=== PATIENT | female | born 1990 | race Caucasian/White ===

== ENCOUNTER 2017-01-04 20:50 | Emergency (ER) | payer BC ==
[2017-01-04 21:19] VITALS: O2SAT 95
--- NOTE | 2017-01-04 21:22 | ED.PDOC ---
History of Present Illness - General Chief Complaint: Headache Stated Complaint: headache with dizziness and confusion Time Seen by Provider: 01/04/17 21:09 Source: patient, RN notes reviewed, Vital Signs reviewed Exam Limitations: no limitations - History of Present Illness Initial Comments: Patient here with c/o CABA with dizziness, confusion and disorientation. CABA started 4 days ago. Pain was back of neck and back of head. Initially was a searing pain but now is improved and just a dull ache. Still able to take her children to school and go about her normal daily activities. No blurry vision, no N/V. No balance/walking issues. She does report numbness of her whole R arm but this has been going on for 6 months. Timing/Duration: constant - 4 days, decreasing Quality: mild, achy, constant Head Injury Location: occipital Recent Head Trauma: no recent headache/trauma Improving Factors: nothing Worsening Factors: nothing Associated Symptoms: confusion, other - dizziness Allergies/Adverse Reactions: Allergies Hydrocodone [From Vicodin] Allergy (Intermediate, Verified 06/25/15 10:40) "I itch really bad" Acetaminophen [From Vicodin] Allergy (Verified 06/25/15 10:40) Codeine Allergy (Verified 10/18/15 10:30) Home Medications: Ambulatory Orders Estradiol 2 mg PO DAILY 06/25/15 Quetiapine Fumarate [Seroquel] 200 mg PO BEDTIME 06/25/15 Amoxicillin & Pot Clavulanate [Augmentin] 875 mg PO BID #20 tab 01/23/16 Fluconazole [Diflucan Tab] 150 mg PO ONCE #1 tab 01/23/16 Nitrofurantoin Monohydrate Mac [Macrobid] 100 mg PO BID #14 cap 02/23/16 Cyclobenzaprine HCl [Flexeril] 5 mg PO Q8HR PRN #15 tab 01/04/17 Review of Systems - Review of Systems Constitutional: States: no symptoms reported. Denies: chills, fever, malaise EENTM: States: no symptoms reported Respiratory: States: no symptoms reported Cardiology: States: no symptoms reported Gastrointestinal/Abdominal: States: no symptoms reported Musculoskeletal: States: no symptoms reported Skin: States: no symptoms reported Neurological: States: see HPI, headache, numbness, other - confusion, dizziness , disorientation All other Systems: No Change from Baseline Past Medical History (General) - Patient Medical History Hx Seizures: No Hx Stroke: No Hx Dementia: No Hx Asthma: No Hx of COPD: No Hx Cardiac Disorders: No Hx Congestive Heart Failure: No Hx Pacemaker: No Hx Hypertension: No Hx Thyroid Disease: No Hx Diabetes: No Hx Gastroesophageal Reflux: Yes Hx Renal Disease: No Hx Cancer: No Hx of HIV: No Hx Hepatitis C: No Hx MRSA: No Surgical History: tonsillectomy, Hysterectomy, other - Vaccination History Hx Tetanus, Diphtheria Vaccination: No Hx Influenza Vaccination: No Hx Pneumococcal Vaccination: No - Social History Hx Tobacco Use: Yes Hx Chewing Tobacco Use: No Hx Alcohol Use: No Hx Substance Use: No Hx Substance Use Treatment: No Hx Depression: Yes - Bi-polar Hx Physical Abuse: No Hx Emotional Abuse: No Hx Suspected Abuse: No - Female History Patient : No - Pt had hysterectomy Family Medical History - Family History Maternal Living Status: Still Living Hx Family Asthma: Yes Hx Family Hypertension: Yes Hx Cardiac Disease: Yes - high cholesterol Hx Family Cancer: Yes Hx Family;Other: DVT per report Physical Exam - Physical Exam General Appearance: Alert, Anxious, Comfortable, No apparent distress, Well Developed, Well Groomed, Well Hydrated, Well Nourished Eyes, Ears, Nose, Throat Exam: PERRL/EOMI, normal ENT inspection, pharynx normal Neck: full range of motion, supple, normal inspection, tender lateral - L lateral paraspinous muscle tenderness Cardiovascular/Chest: regular rate, rhythm, no edema, no gallop, no murmur Respiratory: lungs clear, normal breath sounds, no respiratory distress, no accessory muscle use Extremity: normal range of motion, non-tender, normal inspection Mental Status: alert, oriented x 3, other - Can't do serial 7's w/o a calculator , Got day and year correct but thought the month was January. Remembered 3 items immediately and later during exam. machinist 2nd shift Exam: normal hearing, normal speech, PERRL Coordination/Gait: normal gait Motor/Sensory: no motor deficit, no sensory deficit, no pronator drift Skin Exam: warm/dry, normal color Progress - Progress Progress: 01/04/17 22:22 Discussed normal results with patient and . Most likely is either a slowly resolving Migraine or tension CABA. Given her CABA symptoms and her RUE symptoms recommended follow up with PCP for possible MRI of neck. - Results/Orders Results/Orders: Laboratory Tests 01/04/17 01/04/17 21:30 21:30 WBC 9.6 RBC 4.44 Hgb 13.7 Hct 39.4 MCV 88.7 MCH 30.9 MCHC 34.8 RDW 12.4 Plt Count 190 MPV 8.8 Absolute Neuts (auto) 5.20 Absolute Lymphs (auto) 3.40 Absolute Monos (auto) 0.60 Absolute Eos (auto) 0.20 Absolute Basos (auto) 0.10 Neutrophils % 54.4 Lymphocytes % 35.9 Monocytes % 6.5 Eosinophils % 2.5 Basophils % 0.7 Sodium 139 Potassium 3.9 Chloride 107 Carbon Dioxide 26 Anion Gap 9.9 L BUN 10 Creatinine 0.70 BUN/Creatinine Ratio 14.3 Random Glucose 97 Serum Osmolality 276.5 Calcium 9.4 Total Bilirubin 0.3 AST 16 ALT 12 Alkaline Phosphatase 68 Serum Total Protein 6.6 Albumin 3.7 Globulin 2.9 Albumin/Globulin Ratio 1.3 - EKG/XRAY/CT CT Ordered: Yes CT Interpretation Call Back: No - Head: no acute intracranial abnormality Departure - Departure Clinical Impression: Tension type headache Qualifiers: Headache chronicity pattern: acute headache Intractability: not intractable Qualified Code(s): G44.209 - Tension-type headache, unspecified, not intractable Time of Disposition: 22:28 Disposition: Discharge to Home or Self Care Condition: Good Departure Forms: ED Discharge - Pt. Copy, Patient Portal Self Enrollment Instructions: Tension Headache Diet: resume usual diet Activity: increase activity as tolerated Referrals: Bandar Araujo MD [Primary Care Provider] - 1-2 Weeks Prescriptions: Cyclobenzaprine HCl [Flexeril] 5 mg PO Q8HR PRN #15 tab PRN Reason: Headache/Migraine Pain Home Medications: Ambulatory Orders Estradiol 2 mg PO DAILY 06/25/15 Quetiapine Fumarate [Seroquel] 200 mg PO BEDTIME 06/25/15 Amoxicillin & Pot Clavulanate [Augmentin] 875 mg PO BID #20 tab 01/23/16 Fluconazole [Diflucan Tab] 150 mg PO ONCE #1 tab 01/23/16 Nitrofurantoin Monohydrate Mac [Macrobid] 100 mg PO BID #14 cap 02/23/16 Cyclobenzaprine HCl [Flexeril] 5 mg PO Q8HR PRN #15 tab 05/16/17
--- NOTE | 2017-01-04 21:52 | CT ---
PROCEDURE: Head CLINICAL HISTORY: 26 years Female CABA w/ dizziness COMPARISON: None. TECHNIQUE: Contiguous axial images obtained through the brain without IV contrast. This exam was performed according to our department optimization program which includes automated exposure control, adjustment of the mA and/or kv according to patient size and/or use of iterative reconstruction technique. FINDINGS: The ventricles and sulci appear unremarkable. No abnormal areas of decreased density are identified. No acute hemorrhage. No mass lesions. No fluid or significant mucosal thickening in the visualized paranasal sinuses. No depressed calvarial fractures. IMPRESSION: No acute intracranial abnormality is identified. If there is clinical concern for the possibility of acute ischemic change, MRI could be obtained to better evaluate. Electronically signed by: Bao Bruce MD 01/04/2017 9:52 PM CDT
[2017-01-04] MEDS ORDERED: CYCLOBENZAPRINE HCL 5 MG TAB PO ONE (22:10)
[2017-01-04 22:43] VITALS: BP 115/84; TEMP 97.9
== END 2017-01-04 22:40 | disposition home or self-care (01) ==
LOC: ER 20:50
DX: G44.209 Tension-type headache, unspecified, not intractable (principal); K21.9 Gastro-esophageal reflux disease without esophagitis; F31.9 Bipolar disorder, unspecified; Z79.899 Other long term (current) drug therapy; Z88.6 Allergy status to analgesic agent; Z87.891 Personal history of nicotine dependence

== ENCOUNTER 2017-01-31 18:03 | Emergency (ER) | payer BC ==
[2017-01-31 18:16] VITALS: BP 143/80; TEMP 98
[2017-01-31] MEDS ORDERED: AZITHROMYCIN 250 MG TAB PO ONE (18:16)
[2017-01-31] MEDS ORDERED: predniSONE 20 MG TAB PO ONE ×2 (18:16→18:21)
[2017-01-31 18:19] VITALS: O2SAT 98
--- NOTE | 2017-01-31 18:19 | ED.PDOC ---
History of Present Illness - General Chief Complaint: ENT Problem Stated Complaint: BILATERAL EAR PAIN X 3 WEEKS Time Seen by Provider: 01/31/17 18:15 Source: patient Exam Limitations: no limitations - History of Present Illness Initial Comments: The patient is a 26-year-old female presenting to the emergency room secondary to cough along with sinus pressure, ear pressure and headache for the last 3 weeks. No definite fevers. Mildly productive sputum. No syncope or near syncope. She does smoke. No chest pain. Timing/Duration: unsure Severity: moderate Improving Factors: nothing Worsening Factors: nothing Associated Symptoms: denies symptoms Allergies/Adverse Reactions: Allergies Hydrocodone [From Vicodin] Allergy (Intermediate, Verified 01/31/17 18:11) "I itch really bad" Codeine Allergy (Verified 01/31/17 18:11) Home Medications: Ambulatory Orders Amoxicillin & Pot Clavulanate [Augmentin Tab] 875 mg PO BID #20 tab 01/31/17 Quetiapine Fumarate [Seroquel] 200 mg PO BEDTIME 01/31/17 predniSONE [Prednisone] 20 mg PO DAILY #4 tab 01/31/17 Review of Systems - Review of Systems Constitutional: States: no symptoms reported EENTM: States: ear pain, nose congestion Respiratory: States: see HPI Cardiology: States: no symptoms reported Gastrointestinal/Abdominal: States: no symptoms reported Genitourinary: States: no symptoms reported Musculoskeletal: States: no symptoms reported Skin: States: no symptoms reported Neurological: States: headache Endocrine: States: no symptoms reported All other Systems: No Change from Baseline Past Medical History (General) - Patient Medical History Hx Seizures: No Hx Stroke: No Hx Dementia: No Hx Asthma: No Hx of COPD: No Hx Cardiac Disorders: No Hx Congestive Heart Failure: No Hx Pacemaker: No Hx Hypertension: No Hx Thyroid Disease: No Hx Diabetes: No Hx Gastroesophageal Reflux: Yes Hx Renal Disease: No Hx Cancer: No Hx of HIV: No Hx Hepatitis C: No Hx MRSA: No - Vaccination History Hx Tetanus, Diphtheria Vaccination: No Hx Influenza Vaccination: No Hx Pneumococcal Vaccination: No - Social History Hx Tobacco Use: Yes Hx Chewing Tobacco Use: No Hx Alcohol Use: No Hx Substance Use: No Hx Substance Use Treatment: No Hx Depression: Yes - Bi-polar Hx Physical Abuse: No Hx Emotional Abuse: No Hx Suspected Abuse: No - Female History Patient : No - Pt had hysterectomy Family Medical History - Family History Maternal Living Status: Still Living Hx Family Asthma: Yes Hx Family Hypertension: Yes Hx Cardiac Disease: Yes - high cholesterol Hx Family Cancer: Yes Hx Family;Other: DVT per report Physical Exam - Physical Exam General Appearance: Alert, Comfortable, No apparent distress Eye Exam: bilateral normal Ears, Nose, Throat: hearing grossly normal, normal pharynx, nasal congestion Neck: non-tender, full range of motion, supple Respiratory: chest non-tender, no respiratory distress, no accessory muscle use , other - right lower lobe rales and rhonchi Cardiovascular/Chest: normal peripheral pulses, regular rate, rhythm, no edema Peripheral Pulses: radial,right: 2+, radial,left: 2+, dorsalis pedis,right: 2+, dorsalis pedis,left: 2+ Gastrointestinal/Abdominal: non tender, soft Rectal Exam: deferred Back Exam: normal inspection Extremity: normal range of motion, non-tender, normal inspection, no pedal edema , normal capillary refill Neurologic: pediatric care coordinator II-XII nml as tested, alert, normal mood/affect, oriented x 3 Skin Exam: normal color Comments: Vital Signs - 24 hr 01/31/17 18:12 Temperature 98 F Pulse Rate [ 71 Left Apical] Respiratory 18 Rate Blood Pressure 143/80 [Left Arm] O2 Sat by Pulse 80 L Oximetry Progress - Progress Progress: 01/31/17 18:19 the patient is a 26-year-old presenting with sinusitis for Approximately 3 weeks with associated right lower lobe pneumonia. She is oxygenating well and not in any respiratory distress. she'll be placed on prednisone for 4 days and Augmentin for 10 days. ER warnings were given. She does need follow-up with her primary care doctor for reevaluation in one week. Departure - Departure Clinical Impression: Pneumonia Qualifiers: Pneumonia type: due to unspecified organism Laterality: right Lung location: lower lobe of lung Qualified Code(s): J18.9 - Pneumonia, unspecified organism Disposition: Discharge to Home or Self Care Condition: Fair Departure Forms: ED Discharge - Pt. Copy, Patient Portal Self Enrollment Instructions: DI for Pneumonia -- Adult Diet: regular diet Activity: increase activity as tolerated Referrals: Bandar Araujo MD [Primary Care Provider] - 1-2 Weeks Prescriptions: Amoxicillin & Pot Clavulanate [Augmentin Tab] 875 mg PO BID #20 tab predniSONE [Prednisone] 20 mg PO DAILY #4 tab Home Medications: Ambulatory Orders Amoxicillin & Pot Clavulanate [Augmentin Tab] 875 mg PO BID #20 tab 01/31/17 Quetiapine Fumarate [Seroquel] 200 mg PO BEDTIME 01/31/17 predniSONE [Prednisone] 20 mg PO DAILY #4 tab 01/31/17 Additional Instructions: the patient is a 26-year-old presenting with sinusitis for Approximately 3 weeks with associated right lower lobe pneumonia. She is oxygenating well and not in any respiratory distress. she'll be placed on prednisone for 4 days and Augmentin for 10 days. ER warnings were given. She does need follow-up with her primary care doctor for reevaluation in one week.
[2017-01-31] MEDS ORDERED: AMOXICILLIN & POT CLAVULANATE 875 MG TAB PO ONE (18:21)
[2017-01-31] MEDS ORDERED: IBUPROFEN 200 MG TAB PO ONE (18:30)
== END 2017-01-31 18:43 | disposition home or self-care (01) ==
LOC: ER 18:03
DX: J18.9 Pneumonia, unspecified organism (principal); K21.9 Gastro-esophageal reflux disease without esophagitis; F31.9 Bipolar disorder, unspecified; F17.200 Nicotine dependence, unspecified, uncomplicated; Z88.6 Allergy status to analgesic agent; Z79.899 Other long term (current) drug therapy
CPT/HCPCS: J7512; Q0144

== ENCOUNTER → 2017-10-05 | Outpatient (CLI) | payer BC, OTHER | LOC: YCFC.O 08:32 | DX: R53.81 Other malaise (principal) ==

== ENCOUNTER → 2019-04-05 | Outpatient (CLI) | payer OTHER | LOC: LAB.O 07:15 | PROVIDERS: ATTEND Family Medicine | DX: Z13.220 Encounter for screening for lipoid disorders (principal); R53.83 Other fatigue; R30.0 Dysuria ==

== ENCOUNTER 2019-04-06 23:24 | Emergency (ER) | payer OTHER ==
[2019-04-06] MEDS ORDERED: KETOROLAC TROMETHAMINE INJ 30 MG/ML VIAL IM ONE (23:41)
--- NOTE | 2019-04-06 23:47 | ED.PDOC ---
History of Present Illness - General Chief Complaint: Upper Extremity Injury Stated Complaint: 2 day history of pain and swelling to wrist Time Seen by Provider: 04/06/19 23:41 Source: patient Exam Limitations: no limitations - History of Present Illness Initial Comments: patient comes in today with a 2 day history of worsening swelling and pain to the right wrist. Patient denies any acute injury but she's had a fracture there and also a hairline fracture there several years ago. Patient states she's had no acute trauma, increased activity, or injury to the area. She has however had intermittent bouts of joint swelling in different parts of her body. Patient states this time it started 2 days ago and it feels like there is so much pressure in her wrist and skin tear her skin apart. Patient states she is not taking anything for the pain including no [id number] ibuprofen or Tylenol. Patient is concerned that this could be her heart as both her mother and gr andmother had congestive heart failure in their 30s and her mother in her 50s from coronary artery disease. Patient states the swelling has happened in her shoulders and arms and now her wrist and she routinely has pedal edema. She has not had any fever or chills and denies any chest pain or shortness of breath. Timing/Duration: getting worse Severity: moderate Improving Factors: nothing Worsening Factors: movement Associated Symptoms: denies symptoms Allergies/Adverse Reactions: Allergies Hydrocodone [From Vicodin] Allergy (Intermediate, Verified 01/31/17 18:11) "I itch really bad" Codeine Allergy (Verified 01/31/17 18:11) Home Medications: Ambulatory Orders Amoxicillin & Pot Clavulanate [Augmentin Tab] 875 mg PO BID #20 tab 01/31/17 Quetiapine Fumarate [Seroquel] 200 mg PO BEDTIME 01/31/17 predniSONE [Prednisone] 20 mg PO DAILY #4 tab 01/31/17 Review of Systems - Review of Systems Constitutional: States: no symptoms reported. Denies: chills, fever EENTM: States: no symptoms reported Respiratory: States: no symptoms reported. Denies: cough, short of breath Cardiology: States: no symptoms reported. Denies: chest pain, palpitations Gastrointestinal/Abdominal: States: no symptoms reported. Denies: abdominal pain, nausea, vomiting Genitourinary: States: no symptoms reported Musculoskeletal: States: see HPI Past Medical History (General) - Patient Medical History Hx Seizures: No Hx Stroke: No Hx Dementia: No Hx Asthma: No Hx of COPD: No Hx Cardiac Disorders: No Hx Congestive Heart Failure: No Hx Pacemaker: No Hx Hypertension: No Hx Thyroid Disease: No Hx Diabetes: No Hx Gastroesophageal Reflux: Yes Hx Renal Disease: No Hx Cancer: No Hx of HIV: No Hx Hepatitis C: No Hx MRSA: No - Vaccination History Hx Tetanus, Diphtheria Vaccination: No Hx Influenza Vaccination: No Hx Pneumococcal Vaccination: No - Social History Hx Tobacco Use: Yes Hx Chewing Tobacco Use: No Hx Alcohol Use: No Hx Substance Use: No Hx Substance Use Treatment: No Hx Depression: Yes - Bi-polar Hx Physical Abuse: No Hx Emotional Abuse: No Hx Suspected Abuse: No - Female History Patient : No - Pt had hysterectomy Family Medical History - Family History Maternal Living Status: Still Living Hx Family Asthma: Yes Hx Family Hypertension: Yes Hx Cardiac Disease: Yes - high cholesterol Hx Family Cancer: Yes Hx Family;Other: DVT per report Physical Exam - Physical Exam General Appearance: Alert, Comfortable, No apparent distress Eye Exam: bilateral normal Ears, Nose, Throat: hearing grossly normal, normal ENT inspection, normal pharynx Neck: non-tender, full range of motion, supple, normal inspection Respiratory: chest non-tender, lungs clear, normal breath sounds, no respiratory distress Cardiovascular/Chest: normal peripheral pulses, regular rate, rhythm, no JVD, no murmur Peripheral Pulses: radial,right: 2+, radial,left: 2+ Gastrointestinal/Abdominal: normal bowel sounds, non tender, soft Extremity: swelling - swelling, slight calor and erythema to the right wrist with no fluctulance, no bruising no deformity Neurologic: alert, oriented x 3 Progress - Progress Progress: 04/07/19 00:25 discussed with patient possible inflammatory arthritis. Trial of Toradol and Decadron and have asked her to follow up in the clinic for further testing. - Results/Orders Results/Orders: 04/07/19 00:25 Dexamethasone Inj [Decadron Inj] 4 mg IM ONCE ONE Laboratory Results WBC 9.7 K/mm3 (4.8-10.8) 04/06/19 23:41 RBC 4.45 M/mm3 (4.20-5.40) 04/06/19 23:41 Hgb 14.2 gm/dL (12.0-16.0) 04/06/19 23:41 Hct 39.9 % (36.0-47.0) 04/06/19 23:41 MCV 89.7 fl (81.0-99.0) 04/06/19 23:41 MCH 32.0 pg (27.0-31.0) H 04/06/19 23:41 MCHC 35.7 g/dL (33.0-37.0) 04/06/19 23:41 RDW 12.7 % (11.5-14.5) 04/06/19 23:41 Plt Count 183 K/mm3 (130-400) 04/06/19 23:41 MPV 8.6 fl (7.40-10.4) 04/06/19 23:41 Absolute Neuts (auto) 6.70 K/uL (1.8-6.8) 04/06/19 23:41 Absolute Lymphs (auto) 2.10 K/uL (1.0-3.4) 04/06/19 23:41 Absolute Monos (auto) 0.70 K/uL (0.2-0.8) 04/06/19 23:41 Absolute Eos (auto) 0.20 K/uL (0.0-0.4) 04/06/19 23:41 Absolute Basos (auto) 0.00 K/uL (0.0-0.1) 04/06/19 23:41 Neutrophils % 68.9 % (42.0-78.0) 04/06/19 23:41 Lymphocytes % 21.9 % (20.0-50.0) 04/06/19 23:41 Monocytes % 6.9 % (2.0-9.0) 04/06/19 23:41 Eosinophils % 1.9 % (1.0-5.0) 04/06/19 23:41 Basophils % 0.4 % (0.0-2.0) 04/06/19 23:41 Sodium 138 mmol/L (135-145) 04/06/19 23:41 Potassium 3.4 mmol/L (3.6-5.0) L 04/06/19 23:41 Chloride 104 mmol/L (101-111) 04/06/19 23:41 Carbon Dioxide 22 mmol/L (21-31) 04/06/19 23:41 Anion Gap 15.4 (12-18) 04/06/19 23:41 BUN 10 mg/dL (7-18) 04/06/19 23:41 Creatinine 0.78 mg/dL (0.6-1.3) 04/06/19 23:41 BUN/Creatinine Ratio 12.8 (10-20) 04/06/19 23:41 Random Glucose 98 mg/dL (70-105) 04/06/19 23:41 Serum Osmolality 274.7 mOsm/L (275-295) L 04/06/19 23:41 Uric Acid 6.2 mg/dL (2.6-7.2) 04/06/19 23:48 Calcium 9.0 mg/dL (8.4-10.2) 04/06/19 23:41 Total Bilirubin 0.3 mg/dL (0.2-1.0) 04/06/19 23:41 AST 24 IU/L (10-42) 04/06/19 23:41 ALT 19 IU/L (10-60) 04/06/19 23:41 Alkaline Phosphatase 85 IU/L (42-121) 04/06/19 23:41 C-Reactive Protein 2.2 mg/dL (0-1.0) H 04/06/19 23:48 B-Natriuretic Peptide 10.0 pg/ml (0-100) 04/06/19 23:41 Serum Total Protein 7.2 gm/dL (6.4-8.2) 04/06/19 23:41 Albumin 3.7 g/dl (3.2-5.5) 04/06/19 23:41 Globulin 3.5 gm/dL (2.3-3.5) 04/06/19 23:41 Albumin/Globulin Ratio 1.1 (1.1-1.9) 04/06/19 23:41 Departure - Departure Clinical Impression: Inflammatory arthritis Disposition: Discharge to Home or Self Care Condition: Good Departure Forms: ED Discharge - Pt. Copy, Patient Portal Self Enrollment Instructions: DI for Arm Pain Referrals: David Velásquez MD [Primary Care Provider] - 1-2 Weeks Home Medications: Ambulatory Orders Amoxicillin & Pot Clavulanate [Augmentin Tab] 875 mg PO BID #20 tab 01/31/17 Quetiapine Fumarate [Seroquel] 200 mg PO BEDTIME 01/31/17 predniSONE [Prednisone] 20 mg PO DAILY #4 tab 01/31/17 Additional Instructions: return to ER for temp >100.5, worsening of pain or erythema. Follow up in clinic on Tuesday
--- NOTE | 2019-04-07 00:09 | RAD ---
EXAM: Wrist,Right 2 Views CLINICAL INDICATION: 28-year-old female with pain and swelling. TECHNIQUE: Two views RIGHT wrist were obtained in AP, and lateral projections COMPARISON: None. FINDINGS: There is no fracture or dislocation. The joint spaces are preserved. No soft tissue abnormalities are seen. IMPRESSION: No acute radiographic abnormality. Electronically signed by: Sonali Stephen MD 04/07/2019 12:07 AM CDT
[2019-04-07] MEDS ORDERED: DEXAMETHASONE INJ 4 MG/ML VIAL IM ONE (00:25)
[2019-04-07 01:03] VITALS: BP 118/82; TEMP 98.1; O2SAT 98
== END 2019-04-07 00:50 | disposition home or self-care (01) ==
LOC: ER 23:24
DX: M13.831 Other specified arthritis, right wrist (principal); K21.9 Gastro-esophageal reflux disease without esophagitis; F31.9 Bipolar disorder, unspecified; Z87.891 Personal history of nicotine dependence
CPT/HCPCS: 36415; 73100; 80053; 83880; 84550; 85025; 86140; J1100; J1885

== ENCOUNTER 2019-10-06 15:02 | Emergency (ER) | payer OTHER ==
--- NOTE | 2019-10-06 16:34 | ED.PDOC ---
History of Present Illness - General Chief Complaint: General Stated Complaint: Cough, body ache, sore throat Time Seen by Provider: 10/06/19 15:49 Source: patient - History of Present Illness Initial Comments: 29 yo female chronic smoker who presents with cc of cough and sore throat. Onset yesterday and worsened today. Reports frequent dry cough, worse with activity, little improvement with rest, smokes 2 ppd cigarettes as well. Also reports constant moderate severity sore throat, radiates to right side of neck, worse with eating/drinking, little relief with OTC meds. Reports chills but no fevers. Also reports urinary frequency without dysuria/hematuria. Denies abd pain, n/v/d. Reports CABA & body aches. Daughter was ill last week with strep. Allergies/Adverse Reactions: Allergies Hydrocodone [From Vicodin] Allergy (Intermediate, Verified 10/06/19 15:29) "I itch really bad" Codeine Allergy (Verified 10/06/19 15:29) Home Medications: Ambulatory Orders Quetiapine Fumarate [Seroquel] 200 mg PO BEDTIME 01/31/17 Estradiol 2 mg PO DAILY 10/06/19 Review of Systems - Review of Systems Review of Systems: 10/06/19 16:34 as per HPI All other Systems: Reviewed and Negative Past Medical History (General) - Patient Medical History Hx Seizures: No Hx Stroke: No Hx Dementia: No Hx Asthma: No Hx of COPD: No Hx Cardiac Disorders: No Hx Congestive Heart Failure: No Hx Pacemaker: No Hx Hypertension: No Hx Thyroid Disease: No Hx Diabetes: No Hx Gastroesophageal Reflux: Yes Hx Renal Disease: No Hx Cancer: No Hx of HIV: No Hx Hepatitis C: No Hx MRSA: No Surgical History: tonsillectomy, Hysterectomy, other - Vaccination History Hx Tetanus, Diphtheria Vaccination: No Hx Influenza Vaccination: No Hx Pneumococcal Vaccination: No Immunizations Up to Date: No - Social History Hx Tobacco Use: Yes Hx Chewing Tobacco Use: No Hx Alcohol Use: Yes Hx Substance Use: No Hx Substance Use Treatment: No Hx Depression: Yes - bi polar Hx Physical Abuse: No Hx Emotional Abuse: No Hx Suspected Abuse: No - Female History Patient is a Female of Child Bearing Age (10 -59 yrs old): No Patient : No Family Medical History - Family History Maternal Living Status: Still Living Hx Family Asthma: Yes Hx Family Hypertension: Yes Hx Cardiac Disease: Yes - high cholesterol Hx Family Cancer: Yes Hx Family;Other: DVT per report Physical Exam - Physical Exam General Appearance: Alert, Comfortable, No apparent distress Eye Exam: bilateral normal Ears, Nose, Throat: hearing grossly normal, pharyngeal erythema, other - TM's normal BL Neck: full range of motion, supple, normal inspection, tender lateral - moderate right anterior cervical tender ALVA Respiratory: lungs clear, normal breath sounds, no respiratory distress, no accessory muscle use Cardiovascular/Chest: normal peripheral pulses, regular rate, rhythm, no edema, no gallop, no JVD, no murmur Peripheral Pulses: radial,right: 2+, radial,left: 2+ Gastrointestinal/Abdominal: soft, no organomegaly, tenderness - mild suprapubic Back Exam: normal inspection, no CVA tenderness, no vertebral tenderness Extremity: normal range of motion, non-tender, normal inspection, no pedal edema, no calf tenderness, normal capillary refill 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 Thus, I offered her Toradol and Decadron IM in the ED for symptomatic relief and she accepted. Advised smoking cessation, discussed continued home care and ED return warnings. -dc home in fair condition Anselmo Pena MD Billing #[id number] 10/06/19 15:49 Chest,2 Views [RAD] Stat 10/06/19 16:05 STREP A SCREEN CULTURE Stat Laboratory Results - last 24 hr 10/06/19 10/06/19 10/06/19 16:05 16:05 16:05 Urine Color Yellow Urine Appearance Clear Urine pH 7.0 Ur Specific [place] 1.015 Urine Protein Negative Urine Glucose (UA) Negative Urine Ketones Negative Urine Blood Trace-intact H Urine Nitrite Negative Urine Bilirubin Negative Urine Urobilinogen 0.2 Ur Leukocyte Esterase Negative Urine RBC 0-1 Urine WBC 0 Ur Epithelial Cells 1-3 Urine Bacteria 0 Urine HCG, Qual Negative Group A Strep Rapid Negative - EKG/XRAY/CT XRAY: chest - No acute processes per my read Departure - Departure Clinical Impression: Influenza A Time of Disposition: 16:38 Disposition: Discharge to Home or Self Care Condition: Fair Departure Forms: ED Discharge - Pt. Copy, Patient Portal Self Enrollment Instructions: Flu, Adult (DC) Diet: resume usual diet Activity: increase activity as tolerated Referrals: David Velásquez MD [Primary Care Provider] - 1-2 Weeks Home Medications: Ambulatory Orders Quetiapine Fumarate [Seroquel] 200 mg PO BEDTIME 01/31/17 Estradiol 2 mg PO DAILY 10/06/19 Additional Instructions: Continue OTC medications for symptom relief such as Tylenol, ibuprofen, cough suppressants, sore throat sprays, etc... I strongly advise that you quit smoking at least until you are well but strongly recommend permanently quitting. Return if worsening or if other concerning symptoms develop. Follow up closely with your primary care doctor in 1-2 weeks.
--- NOTE | 2019-10-06 16:41 | RAD ---
EXAM DESCRIPTION: XR Chest,2 Views CLINICAL HISTORY: 29 years Female, cough, fevers COMPARISON: None. FINDINGS: Heart size and mediastinal and hilar structures appear within normal limits. The lungs appear essentially clear. Slight accentuation of markings in the lower lung craven on the PA view is probably due to overlying soft tissue. Regional bony structures appear intact as visualized. IMPRESSION: No radiographic evidence of acute cardiopulmonary disease. Follow-up suggested as needed clinically. Electronically signed by: Dima Fernandez MD 10/06/2019 4:39 PM [facility]
[2019-10-06] MEDS: KETOROLAC TROMETHAMINE INJ 60 MG/2 ML VIAL IM ONE (16:46)
[2019-10-06] MEDS: DEXAMETHASONE INJ 4 MG/ML VIAL IM ONE (16:47)
[2019-10-06 17:22] VITALS: BP 124/86; TEMP 99.4; O2SAT 99
== END 2019-10-06 17:15 | disposition home or self-care (01) ==
LOC: ER 15:02
DX: J10.1 Influenza due to other identified influenza virus with other respiratory manifestations (principal); R35.0 Frequency of micturition; F17.210 Nicotine dependence, cigarettes, uncomplicated; F31.9 Bipolar disorder, unspecified; K21.9 Gastro-esophageal reflux disease without esophagitis; Z88.5 Allergy status to narcotic agent; Z79.899 Other long term (current) drug therapy
CPT/HCPCS: 71046; 81001; 81025; 87070; 87502; 87880; J1100; J1885

== ENCOUNTER 2019-10-09 19:41 | Emergency (ER) | payer OTHER ==
[2019-10-09] MEDS ORDERED: PROCHLORPERAZINE INJ 10 MG/2 ML VIAL IV ONE (20:00)
[2019-10-09] MEDS ORDERED: KETOROLAC TROMETHAMINE INJ 30 MG/ML VIAL IV ONE (20:00)
[2019-10-09] MEDS ORDERED: MAGNESIUM SULFATE INJ 1 GM in SODIUM CHLORIDE 0.9% 100ML 100 ML IVPB ONE (20:01)
[2019-10-09 20:05] VITALS: TEMP 97.4
[2019-10-09] MEDS ORDERED: MAGNESIUM SULFATE INJ 1 GM/2 ML VIAL ONE (20:06)
[2019-10-09] MEDS ORDERED: SODIUM CHLORIDE 0.9% 100ML 100 ML IVPB ONE (20:06)
--- NOTE | 2019-10-09 21:01 | ED.PDOC ---
History of Present Illness - General Chief Complaint: General Stated Complaint: Has flu, and headache, achy Time Seen by Provider: 10/09/19 20:00 Source: patient, RN notes reviewed, Vital Signs reviewed Exam Limitations: no limitations - History of Present Illness Initial Comments: Patient is a 29-year-old white female who presents with severe headache. States that is throbbing, 10/10, unremitting, ongoing 2 days, worse with bright light or loud noises, associated with nausea and vomiting. Patient has had headaches like this in the past. Patient has tried Aleve and Tylenol without success. Patient denies any blurry vision, dizziness, chest pain, shortness of breath or diarrhea. Patient does have nausea and vomiting. Bright lights and loud sounds make the pain worse. It is slightly improved in a quiet dark room. Severity: severe Improving Factors: nothing Associated Symptoms: fever/chills, headaches, loss of appetite, nausea/vomiting Allergies/Adverse Reactions: Allergies Hydrocodone [From Vicodin] Allergy (Intermediate, Verified 10/06/19 15:29) "I itch really bad" Codeine Allergy (Verified 10/06/19 15:29) Home Medications: Ambulatory Orders Quetiapine Fumarate [Seroquel] 200 mg PO BEDTIME 01/31/17 Estradiol 2 mg PO DAILY 10/06/19 Prochlorperazine Tab [Compazine Tab] 10 mg PO Q6H PRN #20 tab 10/09/19 Review of Systems - Review of Systems Constitutional: States: see HPI, fever, malaise. Denies: chills EENTM: States: see HPI, eye pain, other - Patient has no neck pain.. Denies: blurred vision, double vision Respiratory: States: no symptoms reported, see HPI, cough - Patient diagnosed with flu 2 days ago.. Denies: short of breath, stridor, wheezing Cardiology: States: no symptoms reported. Denies: chest pain, palpitations, syncope Gastrointestinal/Abdominal: States: see HPI, nausea, vomiting. Denies: abdominal pain, constipation, diarrhea Genitourinary: States: no symptoms reported. Denies: dysuria, frequency Musculoskeletal: States: see HPI - Patient diagnosed with flu 2 days ago., joint pain, muscle stiffness Skin: States: no symptoms reported. Denies: change in color, rash Neurological: States: headache. Denies: numbness, paresthesia, seizure, tingling, tremors, weakness Endocrine: States: no symptoms reported Hematologic/Lymphatic: States: no symptoms reported All other Systems: Reviewed and Negative Past Medical History (General) - Patient Medical History Hx Seizures: No Hx Stroke: No Hx Dementia: No Hx Asthma: No Hx of COPD: No Hx Cardiac Disorders: No Hx Congestive Heart Failure: No Hx Pacemaker: No Hx Hypertension: No Hx Thyroid Disease: No Hx Diabetes: No Hx Gastroesophageal Reflux: No Hx Renal Disease: No Hx Cancer: No Hx of HIV: No Hx Hepatitis C: No Hx MRSA: No Surgical History: tonsillectomy, Hysterectomy, other - Vaccination History Hx Tetanus, Diphtheria Vaccination: No Hx Influenza Vaccination: No Hx Pneumococcal Vaccination: No - Social History Hx Tobacco Use: Yes Hx Chewing Tobacco Use: No Hx Alcohol Use: No Hx Substance Use: No Hx Substance Use Treatment: No Hx Depression: No Feels Threatened In Home Enviroment: No Feels Threatened In a Relationship: No Hx Physical Abuse: No Hx Emotional Abuse: No Hx Suspected Abuse: No - Female History Patient is a Female of Child Bearing Age (10 -59 yrs old): Yes Patient : No - Triage Comment ED Triage Comment: Severe headache and nausea with no relief. Family Medical History - Family History Maternal Living Status: Still Living Hx Family Asthma: Yes Hx Family Hypertension: Yes Hx Cardiac Disease: Yes - high cholesterol Hx Family Cancer: Yes Hx Family;Other: DVT per report Physical Exam - Physical Exam General Appearance: Agitated, Alert, Anxious, Obvious distress, Well Developed, Well Groomed, Well Hydrated Eye Exam: bilateral normal, bilateral other - Photophobia Ears, Nose, Throat: hearing grossly normal, normal pharynx Neck: non-tender, full range of motion, supple, normal inspection Respiratory: chest non-tender, lungs clear, normal breath sounds, no respiratory distress, no accessory muscle use Cardiovascular/Chest: normal peripheral pulses, regular rate, rhythm, no edema, no gallop, no JVD, no murmur Peripheral Pulses: radial,right: 2+, radial,left: 2+ Gastrointestinal/Abdominal: normal bowel sounds, non tender, no organomegaly, no pulsatile mass Back Exam: normal inspection, no CVA tenderness, no vertebral tenderness Extremity: normal range of motion, non-tender, normal inspection, no pedal edema 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 Skin Exam: normal color, warm/dry Lymphatic: no adenopathy Progress - Progress Progress: Differential diagnosis: Migraine headache, influenza, meningitis, pneumonia among others. 10/09/19 21:03 Patient has had complete resolution of her headache after IV Toradol, IV Compazine and IV magnesium sulfate. Plan on discharge home with a prescription for Compazine. I have discussed this plan of care with the patient and she voices understanding and agreement. Bao Mena M.D. #[id number] Departure - Departure Clinical Impression: Influenza Migraine headache without aura Qualifiers: Status migrainosus presence: without status migrainosus Intractability: not intractable Qualified Code(s): G43.009 - Migraine without aura, not intractable, without status migrainosus Time of Disposition: 21:05 Disposition: Discharge to Home or Self Care Condition: Excellent Departure Forms: ED Discharge - Pt. Copy, Patient Portal Self Enrollment Diet: resume usual diet Activity: increase activity as tolerated Referrals: David Velásquez MD [Primary Care Provider] - 1-2 Weeks Prescriptions: Prochlorperazine Tab [Compazine Tab] 10 mg PO Q6H PRN #20 tab PRN Reason: Headache Or Mild Pain Home Medications: Ambulatory Orders Quetiapine Fumarate [Seroquel] 200 mg PO BEDTIME 01/31/17 Estradiol 2 mg PO DAILY 10/06/19 Prochlorperazine Tab [Compazine Tab] 10 mg PO Q6H PRN #20 tab 10/09/19
[2019-10-09 21:02] VITALS: BP 121/88; O2SAT 96
== END 2019-10-09 21:13 | disposition home or self-care (01) ==
LOC: ER 19:41
DX: G43.009 Migraine without aura, not intractable, without status migrainosus (principal); J11.1 Influenza due to unidentified influenza virus with other respiratory manifestations; Z87.891 Personal history of nicotine dependence; Z88.5 Allergy status to narcotic agent
CPT/HCPCS: J0780; J1885; J3475; J7050

== ENCOUNTER → 2019-11-13 | Outpatient (CLI) | payer OTHER | LOC: YCFC.O 11:08 | PROVIDERS: ATTEND Family Medicine | DX: E78.5 Hyperlipidemia, unspecified (principal) ==

== ENCOUNTER → 2020-03-20 | Outpatient (CLI) | payer OTHER | LOC: YCFC.O 09:15 | PROVIDERS: ATTEND Family Medicine | DX: E78.5 Hyperlipidemia, unspecified (principal); Z79.899 Other long term (current) drug therapy ==

== ENCOUNTER 2020-09-07 17:10 | Emergency (ER) | payer OTHER ==
[2020-09-07] MEDS ORDERED: PROPRANOLOL HCL 20 MG TAB PO ONE (17:21)
--- NOTE | 2020-09-07 17:21 | ED.PDOC ---
History of Present Illness - General Time Seen by Provider: 09/07/20 17:14 Source: patient Exam Limitations: no limitations - History of Present Illness Initial Comments: The patient is a 30-year-old female presents emergency room secondary to several months of intermittent nausea and vomiting, primarily in the mornings when she wakes up. No fevers. She notes a little bit of blood in her stool today. She is not dizzy. She is not been having fevers. No syncope or near syncope. No chest pain. No right upper quadrant pain. No history of pancreatitis. No right lower quadrant pain. Timing/Duration: intermittent Severity: moderate Improving Factors: nothing Worsening Factors: other - Not eating Associated Symptoms: loss of appetite, malaise, nausea/vomiting Allergies/Adverse Reactions: Allergies Hydrocodone [From Vicodin] Allergy (Intermediate, Verified 10/06/19 15:29) "I itch really bad" Codeine Allergy (Verified 10/06/19 15:29) Home Medications: Ambulatory Orders Quetiapine Fumarate [Seroquel] 200 mg PO BEDTIME 01/31/17 Estradiol 2 mg PO DAILY 10/06/19 Prochlorperazine Tab [Compazine Tab] 10 mg PO Q6H PRN #20 tab 10/09/19 Famotidine 20 mg PO DAILY #60 tab 09/07/20 Ondansetron Odt [Zofran ODT] 4 mg PO Q8HR PRN #5 tab 09/07/20 Sucralfate Tab [Carafate Tab] 1 gm PO QID #120 tab 09/07/20 Review of Systems - Review of Systems Constitutional: States: malaise EENTM: States: no symptoms reported Respiratory: States: no symptoms reported Cardiology: States: no symptoms reported Gastrointestinal/Abdominal: States: see HPI Genitourinary: States: no symptoms reported Musculoskeletal: States: no symptoms reported Skin: States: no symptoms reported Neurological: States: no symptoms reported Endocrine: States: no symptoms reported All other Systems: No Change from Baseline Past Medical History (General) - Patient Medical History Hx Seizures: No Hx Stroke: No Hx Dementia: No Hx Asthma: No Hx of COPD: No Hx Cardiac Disorders: No Hx Congestive Heart Failure: No Hx Pacemaker: No Hx Hypertension: No Hx Thyroid Disease: No Hx Diabetes: No Hx Gastroesophageal Reflux: No Hx Renal Disease: No Hx Cancer: No Hx of HIV: No Hx Hepatitis C: No Hx MRSA: No - Vaccination History Hx Tetanus, Diphtheria Vaccination: No Hx Influenza Vaccination: No Hx Pneumococcal Vaccination: No - Social History Hx Tobacco Use: Yes Hx Chewing Tobacco Use: No Hx Alcohol Use: No Hx Substance Use: No Hx Substance Use Treatment: No Hx Depression: No Hx Physical Abuse: No Hx Emotional Abuse: No Hx Suspected Abuse: No - Female History Patient : No Family Medical History - Family History Maternal Living Status: Still Living Hx Family Asthma: Yes Hx Family Hypertension: Yes Hx Cardiac Disease: Yes - high cholesterol Hx Family Cancer: Yes Hx Family;Other: DVT per report Physical Exam - Physical Exam General Appearance: Alert, Anxious, No apparent distress Eye Exam: bilateral normal Ears, Nose, Throat: hearing grossly normal, normal pharynx Neck: full range of motion, supple Respiratory: lungs clear, normal breath sounds, no respiratory distress, no accessory muscle use Cardiovascular/Chest: normal peripheral pulses, regular rate, rhythm, no edema Peripheral Pulses: radial,right: 2+, radial,left: 2+ Gastrointestinal/Abdominal: non tender, soft Rectal Exam: deferred Back Exam: no CVA tenderness, no vertebral tenderness Extremity: non-tender, normal inspection, no pedal edema, normal capillary refill 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 CT scan abdomen pelvis is reassuring. The patient does have a family history of ulcerative colitis and Crohn's so visitation with a counter manager in the near future would be grady. The patient is going to be treated for any acute gastritis with acid reducing medications including Carafate and famotidine for several months. She does need to discuss with her primary care doctor getting tested for Helicobacter pylori as this may be a source for her. Hemoglobin levels are within normal limits. She will also be written for Zofran for as needed use. She needs to maintain a bland diet at least for the next few weeks. She needs to avoid alcohol, caffeine, spicy foods, large meals and hot foods. ER warnings are given. rachel garcia [phone] - Results/Orders Results/Orders: CT scan of the abdomen pelvis shows no acute processes. See report for details. Laboratory Tests 09/07/20 09/07/20 09/07/20 18:05 18:05 18:05 WBC 11.7 H RBC 4.78 Hgb 14.4 Hct 42.3 MCV 88.5 MCH 30.2 MCHC 34.1 RDW 12.6 Plt Count 181 MPV 9.1 Absolute Neuts (auto) 9.10 H Absolute Lymphs (auto) 1.90 Absolute Monos (auto) 0.40 Absolute Eos (auto) 0.10 Absolute Basos (auto) 0.10 Neutrophils % 78.3 H Lymphocytes % 16.7 L Monocytes % 3.8 Eosinophils % 0.8 L Basophils % 0.4 Sodium 138 Potassium 3.7 Chloride 103 Carbon Dioxide 24 Anion Gap 14.7 BUN 11 Creatinine 0.80 BUN/Creatinine Ratio 13.8 Random Glucose 97 Serum Osmolality 275.0 Calcium 9.4 Magnesium 1.9 Total Bilirubin 0.5 AST 21 ALT 19 Alkaline Phosphatase 95 C-Reactive Protein Serum Total Protein 7.6 Albumin 4.4 Globulin 3.2 Albumin/Globulin Ratio 1.4 Amylase 63 Lipase 31 TSH 2.05 Urine Color Urine Appearance Urine pH Ur Specific [place] Urine Protein Urine Glucose (UA) Urine Ketones Urine Blood Urine Nitrite Urine Bilirubin Urine Urobilinogen Ur Leukocyte Esterase Urine RBC Urine WBC Ur Epithelial Cells Urine Bacteria 09/07/20 09/07/20 18:05 18:43 WBC RBC Hgb Hct MCV MCH MCHC RDW Plt Count MPV Absolute Neuts (auto) Absolute Lymphs (auto) Absolute Monos (auto) Absolute Eos (auto) Absolute Basos (auto) Neutrophils % Lymphocytes % Monocytes % Eosinophils % Basophils % Sodium Potassium Chloride Carbon Dioxide Anion Gap BUN Creatinine BUN/Creatinine Ratio Random Glucose Serum Osmolality Calcium Magnesium Total Bilirubin AST ALT Alkaline Phosphatase C-Reactive Protein < 0.8 Serum Total Protein Albumin Globulin Albumin/Globulin Ratio Amylase Lipase TSH Urine Color Yellow Urine Appearance Clear Urine pH 6.5 Ur Specific [place] >= 1.030 Urine Protein Negative Urine Glucose (UA) Negative Urine Ketones Negative Urine Blood Trace-intact H Urine Nitrite Negative Urine Bilirubin Negative Urine Urobilinogen 0.2 Ur Leukocyte Esterase Negative Urine RBC 1-3 Urine WBC 0 Ur Epithelial Cells 3-5 Urine Bacteria Rare Departure - Departure Clinical Impression: Acute gastritis Qualifiers: Gastritis type: unspecified gastritis Gastritis bleeding: without bleeding Qualified Code(s): K29.00 - Acute gastritis without bleeding Disposition: Discharge to Home or Self Care Condition: Fair Instructions: Gastritis (DC) Diet: bland diet Activity: increase activity as tolerated Referrals: David Velásquez MD [Primary Care Provider] - 1-2 Weeks Prescriptions: Ondansetron Odt [Zofran ODT] 4 mg PO Q8HR PRN #5 tab PRN Reason: Nausea--Moderate Sucralfate Tab [Carafate Tab] 1 gm PO QID #120 tab Famotidine 20 mg PO DAILY #60 tab Home Medications: Ambulatory Orders Quetiapine Fumarate [Seroquel] 200 mg PO BEDTIME 01/31/17 Estradiol 2 mg PO DAILY 10/06/19 Prochlorperazine Tab [Compazine Tab] 10 mg PO Q6H PRN #20 tab 10/09/19 Famotidine 20 mg PO DAILY #60 tab 09/07/20 Ondansetron Odt [Zofran ODT] 4 mg PO Q8HR PRN #5 tab 09/07/20 Sucralfate Tab [Carafate Tab] 1 gm PO QID #120 tab 09/07/20 Additional Instructions: The patient is a 30-year-old female presented emergency room secondary to several months of nausea and vomiting. CT scan abdomen pelvis is reassuring. The patient does have a family history of ulcerative colitis and Crohn's so visitation with a counter manager in the near future would be grady. The patient is going to be treated for any acute gastritis with acid reducing medications including Carafate and famotidine for several months. She does need to discuss with her primary care doctor getting tested for Helicobacter pylori as this may be a source for her. Hemoglobin levels are within normal limits. She will also be written for Zofran for as needed use. She needs to maintain a bland diet at least for the next few weeks. She needs to avoid alcohol, caffeine, spicy foods, large meals and hot foods. ER warnings are given.
[2020-09-07] MEDS: SODIUM CHLORIDE 0.9% 1000ML 1,000 ML IVS ONE (18:07)
[2020-09-07] MEDS: SUCRALFATE 1 GM/10 ML 1 GM UD PO ONE (18:07)
[2020-09-07] MEDS: ONDANSETRON ODT 8 MG TAB SL ONE (18:07)
--- NOTE | 2020-09-07 19:40 | CT ---
EXAM: Abdomen/Pelvis w/Contrast CLINICAL INDICATION: Abdominal pain. COMPARISON: There is no previous study for comparison. TECHNIQUE: The CT scan was done using contiguous axial 5 mm postcontrast sections through the abdomen and pelvis including IV contrast. This exam was performed according to our departmental dose-optimization program, which includes automated exposure control, adjustment of the mA and/or kV according to patient size and/or use of iterative reconstruction technique. FINDINGS: The visualized portions of the lung bases are clear. There is diffuse fatty change in the liver without any focal hepatic abnormality. The liver, gallbladder, kidneys, adrenal glands, spleen, and pancreas have an unremarkable CT appearance. The aorta is normal in caliber. There are no dilated loops of small bowel. The appendix is normal. There is no free air, free fluid, or abscess. The uterus is surgically absent. IMPRESSION: 1. No evidence of an acute intra-abdominal process. 2. Fatty liver. Electronically signed by: Robert Mandujano MD 09/07/2020 7:38 PM PSYCHOMETRICIAN
[2020-09-07 19:43] VITALS: BP 104/79; O2SAT 99
[2020-09-07 19:55] VITALS: TEMP 97.5
== END 2020-09-07 19:55 | disposition home or self-care (01) ==
LOC: ER 17:10
DX: K29.00 Acute gastritis without bleeding (principal); Z87.891 Personal history of nicotine dependence; Z88.5 Allergy status to narcotic agent
CPT/HCPCS: 36415; 74177; 80053; 81001; 82150; 83690; 83735; 84443; 85025; 86140; J7030